=== PATIENT | male | born 1940 | race Caucasian/White ===

== ENCOUNTER 2020-06-28 23:58 | Inpatient (IN) ==
[2020-06-29] MEDS ORDERED: Iodixanol (CONTRAST) 320 MG/ML 100 ML SDV IV ONE (00:15)
[2020-06-29 01:13] LABS: ABS Basophils 0.1 10^3/ul (0-0.2); ABS Eosinophils 0.2 10^3/ul (0-0.6); ABS Lymphocytes 1.1 10^3/ul (1.0-4.8); ABS Monocytes 0.4 10^3/ul (0-0.8); ABS Neutrophils 4.8 10^3/ul (1.5-7.7); Eosinophil % 2.8 %; Hematocrit 37 % (42-52); Hemoglobin 12.1 g/dL (14.0-18.0); Lymphocyte % 16.6 %; Mean Corpuscular HGB Conc 33 g/dL (31-36); Mean Corpuscular Hemoglobin 30 pg (27-31); Mean Corpuscular Volume 92 fL (80-94); Mean Platelet Volume 7.3 fL (7.4-10.4); Platelet Count 119 10^3/uL (150-450); Red Blood Count 3.97 10^6 /uL (4.18-5.48); Red Cell Distribution Width 14 % (10-15); White Blood Count 6.6 10^3/uL (3.5-10.8)
[2020-06-29] MEDS ORDERED: Ondansetron 4 mg VIAL 2 MG/ML 2 ml VIAL IV ONE (01:21)
[2020-06-29 01:23] LABS: ALT 13 U/L (7-52); AST 14 U/L (13-39); Albumin/Globulin Ratio 1.7 (1-3); Alkaline Phosphatase 51 U/L (34-104); Anion Gap 5 mmol/L (2-11); BUN/Creatinine Ratio 19.5 (8-20); Blood Urea Nitrogen 24 mg/dL (6-24); CO2 Carbon Dioxide 25 mmol/L (22-32); Calcium 8.8 mg/dL (8.6-10.3); Chloride 108 mmol/L (101-111); EGFR African American 68.3 (>60); EGFR Non-African American 56.5 (>60); Globulin 2.3 g/dL (2-4); Glucose 162 mg/dL (70-100); Potassium 4.2 mmol/L (3.5-5.0); Sodium 138 mmol/L (135-145); Total Protein 6.3 g/dL (6.4-8.9)
[2020-06-29 01:34] LABS: INR 1.35 (0.82-1.09)
[2020-06-29 01:39] LABS: Troponin I 0.03 ng/mL (<0.03)
[2020-06-29] MEDS ORDERED: Albuterol HFA INHALER 8 gm MDI INH PRN (02:13)
[2020-06-29] MEDS: NS 0.9% 1000 ml BAG 1,000 ML IV SCH ×2 (04:37→17:06)
[2020-06-29] MEDS: Pantoprazole VIAL 40 MG VIAL IV SCH (05:18)
[2020-06-29 06:57] LABS: Anion Gap 8 mmol/L (2-11); BUN/Creatinine Ratio 19.5 (8-20); Blood Urea Nitrogen 22 mg/dL (6-24); CO2 Carbon Dioxide 21 mmol/L (22-32); Calcium 8.8 mg/dL (8.6-10.3); Chloride 108 mmol/L (101-111); Cholesterol 101 mg/dL; EGFR African American 75.4 (>60); EGFR Non-African American 62.3 (>60); Glucose 188 mg/dL (70-100); HDL Cholesterol 34.7 mg/dL; LDL Cholesterol 49 mg/dL; Potassium 4.4 mmol/L (3.5-5.0); Sodium 137 mmol/L (135-145); Triglycerides 86 mg/dL
[2020-06-29 07:05] LABS: Troponin I 0.03 ng/mL (<0.03)
[2020-06-29] MEDS ORDERED: Perflutren Lipid Microsphere 3 ML VIAL ONE (09:44)
[2020-06-29] MEDS ORDERED: Ondansetron 4 mg VIAL 2 MG/ML 2 ml VIAL IV PRN (11:54)
[2020-06-29] MEDS ORDERED: Labetalol IV 5 MG/ML 20 ml VIAL IV PUSH PRN (16:00)
[2020-06-30] MEDS: NS 0.9% 1000 ml BAG 1,000 ML IV SCH (06:04)
[2020-06-30] MEDS: Pantoprazole VIAL 40 MG VIAL IV SCH (09:31)
[2020-06-30 11:49] LABS: ABS Lymphocytes 1.1 10^3/ul (1.0-4.8); ABS Monocytes 0.8 10^3/ul (0-0.8); Hematocrit 33 % (42-52); Hemoglobin 10.8 g/dL (14.0-18.0); Lymphocyte % 12.2 %; Mean Corpuscular HGB Conc 33 g/dL (31-36); Mean Corpuscular Hemoglobin 30 pg (27-31); Mean Corpuscular Volume 93 fL (80-94); Platelet Count 109 10^3/uL (150-450); Red Blood Count 3.55 10^6 /uL (4.18-5.48); Red Cell Distribution Width 14 % (10-15); White Blood Count 8.9 10^3/uL (3.5-10.8)
[2020-06-30 12:05] LABS: Calcium 8.2 mg/dL (8.6-10.3); Magnesium 1.8 mg/dL (1.9-2.7); Potassium 4.2 mmol/L (3.5-5.0)
[2020-06-30 12:11] LABS: BUN/Creatinine Ratio 18.3 (8-20); EGFR African American 73.9 (>60)
[2020-06-30] MEDS ORDERED: Prothrombin Complex Conc. DOSE = Units Factor IX (nine) IV SLOW PU ONE ×2 (20:00)
[2020-06-30 20:46] LABS: ABS Lymphocytes 1.2 10^3/ul (1.0-4.8); ABS Monocytes 0.9 10^3/ul (0-0.8); ABS Neutrophils 6.4 10^3/ul (1.5-7.7); Eosinophil % 0.5 %; Hematocrit 34 % (42-52); Hemoglobin 11.2 g/dL (14.0-18.0); Lymphocyte % 14.1 %; Mean Corpuscular HGB Conc 33 g/dL (31-36); Mean Corpuscular Hemoglobin 30 pg (27-31); Mean Corpuscular Volume 92 fL (80-94); Mean Platelet Volume 7.4 fL (7.4-10.4); Platelet Count 116 10^3/uL (150-450); Red Blood Count 3.67 10^6 /uL (4.18-5.48); Red Cell Distribution Width 14 % (10-15); White Blood Count 8.6 10^3/uL (3.5-10.8)
[2020-06-30 20:50] LABS: INR 1.14 (0.82-1.09)
[2020-06-30 21:00] LABS: BUN/Creatinine Ratio 21.1 (8-20); Calcium 8.5 mg/dL (8.6-10.3); EGFR African American 74.6 (>60); EGFR Non-African American 61.7 (>60)
[2020-06-30] MEDS ORDERED: SODIUM CHLORIDE 3% IV ONE (21:00)
[2020-06-30] MEDS ORDERED: HYPERTONIC IV ONE (21:00)
[2020-07-01 01:17] LABS: BUN/Creatinine Ratio 20.6 (8-20); Blood Urea Nitrogen 22 mg/dL (6-24); CO2 Carbon Dioxide 22 mmol/L (22-32); Calcium 8.1 mg/dL (8.6-10.3); Chloride 108 mmol/L (101-111); EGFR African American 80.3 (>60); EGFR Non-African American 66.3 (>60); Glucose 142 mg/dL (70-100); Sodium 135 mmol/L (135-145)
[2020-07-01 01:20] LABS: Anion Gap 5 mmol/L (2-11)
[2020-07-01 04:59] LABS: ABS Basophils 0.1 10^3/ul (0-0.2); ABS Eosinophils 0.1 10^3/ul (0-0.6); ABS Lymphocytes 1.3 10^3/ul (1.0-4.8); ABS Monocytes 0.7 10^3/ul (0-0.8); ABS Neutrophils 5.9 10^3/ul (1.5-7.7); Eosinophil % 1.1 %; Hematocrit 34 % (42-52); Hemoglobin 11.2 g/dL (14.0-18.0); Lymphocyte % 15.7 %; Mean Corpuscular HGB Conc 33 g/dL (31-36); Mean Corpuscular Hemoglobin 30 pg (27-31); Mean Corpuscular Volume 92 fL (80-94); Mean Platelet Volume 7.4 fL (7.4-10.4); Platelet Count 106 10^3/uL (150-450); Red Blood Count 3.73 10^6 /uL (4.18-5.48); Red Cell Distribution Width 14 % (10-15)
[2020-07-01 05:15] LABS: BUN/Creatinine Ratio 20.6 (8-20); Calcium 8.4 mg/dL (8.6-10.3); EGFR African American 84.8 (>60); EGFR Non-African American 70.1 (>60); Magnesium 1.7 mg/dL (1.9-2.7)
[2020-07-01] MEDS ORDERED: Magnesium Sulfate 2 gm BAG 2 GM/50 ML BAG IVPB ONE (05:20)
[2020-07-01 09:44] LABS: Calcium 7.9 mg/dL (8.6-10.3); Potassium 3.9 mmol/L (3.5-5.0)
[2020-07-01 09:49] LABS: BUN/Creatinine Ratio 20.7 (8-20); EGFR African American 95.5 (>60)
[2020-07-01] MEDS: levETIRAcetam 500 MG IVPREMIX 500 MG/100 ML BAG IV SCH ×2 (10:56→20:41)
[2020-07-01] MEDS ORDERED: Dextrose 50% Syringe 50 ml 25 GM/50 ML SYRINGE IV PUSH PRN (11:52)
[2020-07-02 06:05] LABS: Calcium 8.1 mg/dL (8.6-10.3); Magnesium 2.1 mg/dL (1.9-2.7); Potassium 4.1 mmol/L (3.5-5.0)
[2020-07-02 06:10] LABS: BUN/Creatinine Ratio 22.3 (8-20); EGFR African American 93.2 (>60)
[2020-07-02] MEDS: levETIRAcetam 500 MG IVPREMIX 500 MG/100 ML BAG IV SCH ×2 (09:04→21:14)
[2020-07-03] MEDS ORDERED: Senna TAB 8.6 mg TAB PO PRN (02:42)
[2020-07-03] MEDS ORDERED: Polyethylene Glycol 3350 17 GM PACKET PO PRN (02:42)
[2020-07-03 04:54] LABS: ABS Eosinophils 0.2 10^3/ul (0-0.6); ABS Lymphocytes 0.8 10^3/ul (1.0-4.8); ABS Monocytes 0.5 10^3/ul (0-0.8); ABS Neutrophils 5.6 10^3/ul (1.5-7.7); Eosinophil % 2.5 %; Hematocrit 31 % (42-52); Hemoglobin 10.4 g/dL (14.0-18.0); Lymphocyte % 11.1 %; Mean Corpuscular HGB Conc 34 g/dL (31-36); Mean Corpuscular Hemoglobin 31 pg (27-31); Mean Corpuscular Volume 91 fL (80-94); Platelet Count 112 10^3/uL (150-450); Red Blood Count 3.37 10^6 /uL (4.18-5.48); Red Cell Distribution Width 14 % (10-15)
[2020-07-03 05:10] LABS: BUN/Creatinine Ratio 22.4 (8-20); Calcium 8.2 mg/dL (8.6-10.3); EGFR African American 104.7 (>60); EGFR Non-African American 86.5 (>60); Magnesium 1.9 mg/dL (1.9-2.7); Potassium 3.7 mmol/L (3.5-5.0)
[2020-07-03] MEDS ORDERED: Potassium Chlor 20 meq TAB.ER PO ONE (05:36)
[2020-07-03] MEDS ORDERED: Magnesium Sulfate IV 1GM/100ML 1 GM/100 ML BAG IV ONE (05:36)
[2020-07-03] MEDS: levETIRAcetam 500 MG IVPREMIX 500 MG/100 ML BAG IV SCH ×2 (09:03→20:18)
[2020-07-03] MEDS: Albuterol/Ipratropium NEB.SOL (2.5/0.5 MG) 3 ML NEB.SOLN INH PRN ×2 (10:33→15:48)
[2020-07-03] MEDS ORDERED: Furosemide 20 mg/2 ml IV VIAL IV SLOW PU ONE (23:23)
[2020-07-04 06:08] LABS: Calcium 8.5 mg/dL (8.6-10.3); Potassium 3.9 mmol/L (3.5-5.0)
[2020-07-04 06:14] LABS: BUN/Creatinine Ratio 21.3 (8-20); EGFR African American 99.3 (>60)
[2020-07-04 06:30] LABS: ABS Lymphocytes 1.1 10^3/ul (1.0-4.8); ABS Monocytes 0.6 10^3/ul (0-0.8); Eosinophil % 0.5 %; Hematocrit 36 % (42-52); Lymphocyte % 12.3 %; Mean Corpuscular HGB Conc 33 g/dL (31-36); Mean Corpuscular Hemoglobin 30 pg (27-31); Mean Corpuscular Volume 92 fL (80-94); Mean Platelet Volume 7.5 fL (7.4-10.4); Platelet Count 111 10^3/uL (150-450); Red Blood Count 3.95 10^6 /uL (4.18-5.48); Red Cell Distribution Width 14 % (10-15); White Blood Count 8.7 10^3/uL (3.5-10.8)
[2020-07-04] MEDS: Albuterol/Ipratropium NEB.SOL (2.5/0.5 MG) 3 ML NEB.SOLN INH PRN ×2 (08:13→20:54)
[2020-07-04] MEDS: levETIRAcetam 500 MG IVPREMIX 500 MG/100 ML BAG IV SCH ×2 (09:17→20:25)
[2020-07-04] MEDS: Enoxaparin 40 MG/0.4 ML SYR SUBCUT SCH (10:00)
[2020-07-05 07:48] VITALS: BP 136/54
[2020-07-05] MEDS: levETIRAcetam 500 MG IVPREMIX 500 MG/100 ML BAG IV SCH (08:31)
[2020-07-05] MEDS ORDERED: Furosemide 40 mg/4 ml IV VIAL IV ONE (08:36)
[2020-07-05] MEDS: Enoxaparin 40 MG/0.4 ML SYR SUBCUT SCH (08:37)
== END 2020-07-05 08:41 | DRG 64 ==
LOC: ED 23:58 → MEDTELE 06-29 02:05 → ICU 06-30 20:04 → MEDTELE 07-03 16:40
PROVIDERS: ADMIT Internal Medicine; ATTEND Hospitalist

== ENCOUNTER 2020-07-05 09:29 | Inpatient (IN) ==
[2020-07-05] MEDS ORDERED: Senna TAB 8.6 mg TAB PO PRN (13:04)
[2020-07-05] MEDS ORDERED: Dextrose 50% Syringe 50 ml 25 GM/50 ML SYRINGE IV PUSH PRN (13:13)
[2020-07-05] MEDS ORDERED: Albuterol/Ipratropium NEB.SOL (2.5/0.5 MG) 3 ML NEB.SOLN INH PRN (13:16)
[2020-07-06 07:42] LABS: ABS Basophils 0.1 10^3/ul (0-0.2); ABS Eosinophils 0.2 10^3/ul (0-0.6); ABS Monocytes 0.6 10^3/ul (0-0.8); ABS Neutrophils 6.3 10^3/ul (1.5-7.7); Eosinophil % 2.9 %; Hematocrit 35 % (42-52); Hemoglobin 11.5 g/dL (14.0-18.0); Lymphocyte % 12.3 %; Mean Corpuscular HGB Conc 33 g/dL (31-36); Mean Corpuscular Hemoglobin 30 pg (27-31); Mean Corpuscular Volume 92 fL (80-94); Mean Platelet Volume 7.3 fL (7.4-10.4); Platelet Count 139 10^3/uL (150-450); Red Blood Count 3.79 10^6 /uL (4.18-5.48); Red Cell Distribution Width 14 % (10-15); White Blood Count 8.2 10^3/uL (3.5-10.8)
[2020-07-06 08:03] LABS: Albumin 3.2 g/dL (3.2-5.2); Albumin/Globulin Ratio 1.4 (1-3); BUN/Creatinine Ratio 28.4 (8-20); Calcium 8.3 mg/dL (8.6-10.3); EGFR African American 92.1 (>60); EGFR Non-African American 76.1 (>60); Globulin 2.3 g/dL (2-4); Potassium 3.2 mmol/L (3.5-5.0); Total Protein 5.5 g/dL (6.4-8.9)
[2020-07-06] MEDS: Enoxaparin 40 MG/0.4 ML SYR SUBCUT SCH (09:04)
[2020-07-06] MEDS: SPIRIVA Respimat (tiotropium) 2.5 mcg/inh Inhaler INH SCH (09:06)
[2020-07-06] MEDS: Potassium Chlor 20 meq TAB.ER PO ONE ×2 (22:58→23:10)
[2020-07-06] MEDS ORDERED: Potassium Chloride LIQUID 20 MEQ/15 ML LIQUID PO ONE (23:17)
[2020-07-07] MEDS: Potassium Chlor 20 meq TAB.ER PO SCH ×2 (10:00→21:13)
[2020-07-07] MEDS: Enoxaparin 40 MG/0.4 ML SYR SUBCUT SCH (10:01)
[2020-07-07] MEDS: SPIRIVA Respimat (tiotropium) 2.5 mcg/inh Inhaler INH SCH (10:01)
[2020-07-07] MEDS: Albuterol HFA INHALER 8 gm MDI INH PRN (15:55)
[2020-07-08] MEDS: Potassium Chlor 20 meq TAB.ER PO SCH (09:11)
[2020-07-08] MEDS: Enoxaparin 40 MG/0.4 ML SYR SUBCUT SCH (09:12)
[2020-07-08] MEDS: SPIRIVA Respimat (tiotropium) 2.5 mcg/inh Inhaler INH SCH (09:12)
[2020-07-08] MEDS: Potassium Chloride LIQUID 20 MEQ/15 ML LIQUID PO SCH (20:51)
[2020-07-08] MEDS: Albuterol HFA INHALER 8 gm MDI INH PRN (21:30)
[2020-07-09] MEDS: SPIRIVA Respimat (tiotropium) 2.5 mcg/inh Inhaler INH SCH (08:33)
[2020-07-09] MEDS: Enoxaparin 40 MG/0.4 ML SYR SUBCUT SCH (09:42)
[2020-07-09] MEDS: Potassium Chloride LIQUID 20 MEQ/15 ML LIQUID PO SCH ×2 (09:43→20:45)
[2020-07-09] MEDS: Albuterol HFA INHALER 8 gm MDI INH PRN (20:42)
[2020-07-10 07:27] LABS: CO2 Carbon Dioxide 19 mmol/L (22-32); Calcium 7.8 mg/dL (8.6-10.3); Chloride 107 mmol/L (101-111); Sodium 134 mmol/L (135-145)
[2020-07-10 07:32] LABS: Anion Gap 8 mmol/L (2-11)
[2020-07-10 07:33] LABS: BUN/Creatinine Ratio 18.5 (8-20); Blood Urea Nitrogen 15 mg/dL (6-24); EGFR African American 110.4 (>60); EGFR Non-African American 91.2 (>60); Glucose 104 mg/dL (70-100)
[2020-07-10] MEDS: SPIRIVA Respimat (tiotropium) 2.5 mcg/inh Inhaler INH SCH (08:27)
[2020-07-10] MEDS: Enoxaparin 40 MG/0.4 ML SYR SUBCUT SCH (09:15)
[2020-07-10] MEDS: Potassium Chloride LIQUID 20 MEQ/15 ML LIQUID PO SCH (09:15)
[2020-07-10] MEDS: Aspirin EC 81 mg TAB.EC (enteric coated) PO SCH (09:15)
[2020-07-11] MEDS: SPIRIVA Respimat (tiotropium) 2.5 mcg/inh Inhaler INH SCH (08:25)
[2020-07-11] MEDS ORDERED: Potassium Chlor 20 meq TAB.ER PO SCH (09:00)
[2020-07-11] MEDS ORDERED: Potassium Chloride LIQUID 20 MEQ/15 ML LIQUID PO SCH (09:00)
[2020-07-11] MEDS: Enoxaparin 40 MG/0.4 ML SYR SUBCUT SCH (09:35)
[2020-07-11] MEDS: Aspirin EC 81 mg TAB.EC (enteric coated) PO SCH (09:35)
[2020-07-11] MEDS: Albuterol HFA INHALER 8 gm MDI INH PRN (21:09)
[2020-07-11] MEDS: Ciprofloxacin 0.3% OPTH.SOL BTL LEFT EYE SCH (21:23)
[2020-07-12] MEDS: Ciprofloxacin 0.3% OPTH.SOL BTL LEFT EYE SCH ×6 (02:17→22:03)
[2020-07-12] MEDS: Aspirin EC 81 mg TAB.EC (enteric coated) PO SCH (08:28)
[2020-07-12] MEDS: Potassium Chloride LIQUID 20 MEQ/15 ML LIQUID PO SCH (08:30)
[2020-07-12] MEDS: Enoxaparin 40 MG/0.4 ML SYR SUBCUT SCH (08:30)
[2020-07-12] MEDS: SPIRIVA Respimat (tiotropium) 2.5 mcg/inh Inhaler INH SCH (08:30)
[2020-07-12] MEDS ORDERED: Latanoprost 0.005% 2.5 ml BTL LEFT EYE SCH (18:00)
[2020-07-13] MEDS: Ciprofloxacin 0.3% OPTH.SOL BTL LEFT EYE SCH ×3 (02:50→08:35)
[2020-07-13 05:58] VITALS: BP 131/57
[2020-07-13] MEDS: Potassium Chloride LIQUID 20 MEQ/15 ML LIQUID PO SCH (08:34)
[2020-07-13] MEDS: Enoxaparin 40 MG/0.4 ML SYR SUBCUT SCH (08:35)
[2020-07-13] MEDS: SPIRIVA Respimat (tiotropium) 2.5 mcg/inh Inhaler INH SCH (08:35)
[2020-07-13] MEDS: Aspirin EC 81 mg TAB.EC (enteric coated) PO SCH (08:35)
== END 2020-07-13 15:30 | disposition home health service (06) | DRG 56 ==
LOC: PMRU 10:22
PROVIDERS: ADMIT Physical Medicine & Rehabilitation; ATTEND Physical Medicine & Rehabilitation

== ENCOUNTER 2023-11-07 06:22 | Inpatient (IN) ==
[2023-11-07] MEDS: Ondansetron 4 mg VIAL 2 MG/ML 2 ml VIAL IV ONE (07:20)
[2023-11-07] MEDS: Morphine 2 MG/ML SYRINGE IV ONE (07:20)
[2023-11-07 07:31] LABS: ABS Basophils 0.1 10^3/uL (0.0-0.1); ABS Eosinophils 0.2 10^3/uL (0.0-0.5); ABS Lymphocytes 0.8 10^3/uL (1.0-4.8); ABS Monocytes 0.3 10^3/uL (0.0-1.1); ABS Neutrophils 4.2 10^3/uL (1.5-7.6); Eosinophil % 2.8 %; Hematocrit 35.3 % (38-53); Hemoglobin 11.6 g/dL (13.2-16.3); Lymphocyte % 13.7 %; Mean Corpuscular Hemoglobin 28.7 pg (27-33); Mean Corpuscular Hgb Conc 32.8 g/dL (31-36); Mean Corpuscular Volume 87.5 fL (80-97); Mean Platelet Volume 7.2 fL (7.5-11.2); Platelet Count 108 10^3/uL (150-450); Red Blood Count 4.03 10^6/uL (4.06-5.63); Red Cell Distribution Width 14.8 % (12-17); White Blood Count 5.5 10^3/uL (3.6-10.2)
[2023-11-07 07:42] LABS: Activated Partial Thrombo Time 36.8 seconds (26.0-38.0); INR 2.19 (0.83-1.13)
[2023-11-07 08:27] LABS: Albumin 3.8 g/dL (3.2-5.2); Albumin/Globulin Ratio 1.9 (1-3); Calcium 8.9 mg/dL (8.6-10.3); Creatinine, Serum 1.3 mg/dL (0.67-1.17); Potassium 4.6 mmol/L (3.5-5.0); Total Bilirubin 0.6 mg/dL (0.2-1.0); Total Protein 5.8 g/dL (6.4-8.9); eGFR CKD-EPI 53.8 (>60)
[2023-11-07] MEDS ORDERED: Ondansetron ODT 4 mg TAB 4 MG TAB SL PRN (10:45)
[2023-11-07] MEDS ORDERED: Dextrose 50% Syringe 50 ml 25 GM/50 ML SYRINGE IV PUSH PRN (10:53)
[2023-11-07] MEDS: Phytonadione Oral Solution 5 MG/25 ML UDC PO ONE (11:53)
[2023-11-07] MEDS: Lactated Ringers 1000 ml BAG 1,000 ML IV ONE (14:20)
[2023-11-07 15:49] LABS: ABS Lymphocytes 0.5 10^3/uL (1.0-4.8); ABS Monocytes 0.3 10^3/uL (0.0-1.1); ABS Neutrophils 4.5 10^3/uL (1.5-7.6); Eosinophil % 0.2 %; Hematocrit 26.4 % (38-53); Hemoglobin 8.6 g/dL (13.2-16.3); Lymphocyte % 8.8 %; Mean Corpuscular Hemoglobin 28.6 pg (27-33); Mean Corpuscular Hgb Conc 32.5 g/dL (31-36); Mean Corpuscular Volume 87.9 fL (80-97); Mean Platelet Volume 7.4 fL (7.5-11.2); Platelet Count 89 10^3/uL (150-450); Red Blood Count 3.01 10^6/uL (4.06-5.63); Red Cell Distribution Width 14.7 % (12-17); White Blood Count 5.3 10^3/uL (3.6-10.2)
[2023-11-07 19:15] LABS: Vitamin D Total 25(OH) 18.8 ng/mL (20-50)
[2023-11-07 21:11] LABS: ABS Lymphocytes 0.7 10^3/uL (1.0-4.8); ABS Monocytes 0.5 10^3/uL (0.0-1.1); ABS Neutrophils 5.2 10^3/uL (1.5-7.6); Eosinophil % 0.2 %; Hematocrit 31.1 % (38-53); Hemoglobin 10.4 g/dL (13.2-16.3); Lymphocyte % 10.6 %; Mean Corpuscular Hemoglobin 29.1 pg (27-33); Mean Corpuscular Hgb Conc 33.4 g/dL (31-36); Mean Corpuscular Volume 87.1 fL (80-97); Mean Platelet Volume 7.3 fL (7.5-11.2); Platelet Count 109 10^3/uL (150-450); Red Blood Count 3.57 10^6/uL (4.06-5.63); Red Cell Distribution Width 14.7 % (12-17); White Blood Count 6.5 10^3/uL (3.6-10.2)
[2023-11-07] MEDS: Senna TAB 8.6 mg TAB PO SCH (21:25)
[2023-11-08 01:14] LABS: INR 1.93 (0.83-1.13)
[2023-11-08] MEDS: Phytonadione IV (Adult) 5 MG in NS 0.9% 50 ML 50 ML IV ONE (05:21)
[2023-11-08 06:10] LABS: ABS Lymphocytes 0.6 10^3/uL (1.0-4.8); ABS Monocytes 0.5 10^3/uL (0.0-1.1); ABS Neutrophils 5.1 10^3/uL (1.5-7.6); Eosinophil % 0.8 %; Hematocrit 31.6 % (38-53); Hemoglobin 10.3 g/dL (13.2-16.3); Lymphocyte % 9.7 %; Mean Corpuscular Hemoglobin 28.7 pg (27-33); Mean Corpuscular Hgb Conc 32.7 g/dL (31-36); Mean Corpuscular Volume 87.7 fL (80-97); Platelet Count 106 10^3/uL (150-450); Red Blood Count 3.61 10^6/uL (4.06-5.63); Red Cell Distribution Width 14.9 % (12-17); White Blood Count 6.3 10^3/uL (3.6-10.2)
[2023-11-08 06:16] LABS: INR 1.68 (0.83-1.13)
[2023-11-08 07:00] LABS: Calcium 8.7 mg/dL (8.6-10.3); Creatinine, Serum 1.29 mg/dL (0.67-1.17); Potassium 4.7 mmol/L (3.5-5.0); eGFR CKD-EPI 54.3 (>60)
[2023-11-08] MEDS: Phytonadione Oral Solution 5 MG/25 ML UDC PO ONE (10:54)
[2023-11-08] MEDS: Polyethylene Glycol 3350 17 GM PACKET PO SCH (10:57)
[2023-11-08] MEDS: CMC:DAPAGLIFLOZIN 10 MG TAB (NF) PO SCH (11:02)
[2023-11-08] MEDS: CMC:Solifenacin 5 mg TAB (NF) PO SCH (11:02)
[2023-11-08] MEDS: SPIRIVA Respimat (tiotropium) 2.5 mcg/inh Inhaler INH SCH (11:04)
[2023-11-08] MEDS: Lactated Ringers 1000 ml BAG 1,000 ML IV SCH (11:42)
[2023-11-08 13:40] LABS: INR 1.37 (0.83-1.13)
[2023-11-08] MEDS ORDERED: Lidocaine 1% w EPI 1:100,000 MDV 20 ML VIAL ONE (15:50)
[2023-11-08] MEDS ORDERED: Lidocaine 2% PF 5 ML VIAL ONE (15:57)
[2023-11-08] MEDS ORDERED: Rocuronium 50 mg VIAL 10 mg/ml 5 ml VIAL (50 mg) ONE (15:58)
[2023-11-08] MEDS ORDERED: fentaNYL 100 mcg/2 ml 50 MCG/ML VIAL ONE (15:58)
[2023-11-08] MEDS ORDERED: Propofol 10 MG/ML 20 ML BTL ONE (15:58)
[2023-11-08] MEDS ORDERED: ceFAZolin 2 GM in NS PREMIX 2 GM/100 ML BAG IVPB ONE (16:28)
[2023-11-08] MEDS ORDERED: Dexamethasone IV 4 MG/ML VIAL 1 ml VIAL ONE (17:13)
[2023-11-08] MEDS ORDERED: Ondansetron 4 mg VIAL 2 MG/ML 2 ml VIAL ONE (17:13)
[2023-11-08] MEDS ORDERED: Phenylephrine IV 10 MG/ML 1 ml VIAL ONE (17:15)
[2023-11-08] MEDS ORDERED: Acetaminophen IV 1 GM/100ML 1,000 MG/100 ML BAG IV ONE (17:22)
[2023-11-08] MEDS ORDERED: Desflurane 240 ML INH ONE (18:21)
[2023-11-08] MEDS ORDERED: Magnesium Hydroxide LIQ 30 ML UDC PO PRN (20:03)
[2023-11-08] MEDS ORDERED: Senna TAB 8.6 mg TAB PO PRN (20:03)
[2023-11-08] MEDS ORDERED: Polyethylene Glycol 3350 17 GM PACKET PO PRN (20:03)
[2023-11-08 20:30] LABS: Hematocrit 30.3 % (38-53)
[2023-11-08] MEDS: Magnesium Hydroxide LIQ 30 ML UDC PO SCH (21:00)
[2023-11-08 21:07] LABS: Albumin 3.4 g/dL (3.2-5.2); Albumin/Globulin Ratio 1.8 (1-3); Calcium 8.2 mg/dL (8.6-10.3); Creatinine, Serum 1.26 mg/dL (0.67-1.17); Globulin 1.9 g/dL (2-4); Potassium 4.5 mmol/L (3.5-5.0); Total Bilirubin 0.6 mg/dL (0.2-1.0); Total Protein 5.3 g/dL (6.4-8.9); eGFR CKD-EPI 55.9 (>60)
[2023-11-09] MEDS: ceFAZolin 1 GM ADVAN 1 GM in NS 0.9% 50 ML 50 ML IVPB SCH (00:26)
[2023-11-09 06:24] LABS: ABS Lymphocytes 0.4 10^3/uL (1.0-4.8); ABS Monocytes 0.4 10^3/uL (0.0-1.1); ABS Neutrophils 5.1 10^3/uL (1.5-7.6); ABS Nucleated RBC 0.01 10^3/ul; Albumin 3.3 g/dL (3.2-5.2); Albumin/Globulin Ratio 1.6 (1-3); Calcium 8.3 mg/dL (8.6-10.3); Creatinine, Serum 1.38 mg/dL (0.67-1.17); Eosinophil % 0.1 %; Globulin 2.1 g/dL (2-4); Hematocrit 30.7 % (38-53); Hemoglobin 9.5 g/dL (13.2-16.3); Mean Corpuscular Hemoglobin 28.8 pg (27-33); Mean Corpuscular Volume 92.9 fL (80-97); Mean Platelet Volume 7.9 fL (7.5-11.2); Nucleated Red Blood Cells % 0.2 %/100WBC (0.0-0.8); Platelet Count 99 10^3/uL (150-450); Potassium 4.9 mmol/L (3.5-5.0); Red Blood Count 3.31 10^6/uL (4.06-5.63); Red Cell Distribution Width 15.6 % (12-17); Total Bilirubin 0.4 mg/dL (0.2-1.0); Total Protein 5.4 g/dL (6.4-8.9); eGFR CKD-EPI 50.1 (>60)
[2023-11-09] MEDS ORDERED: Warfarin per PHARMACY **NOTE FOLLOW UP SCH (08:00)
[2023-11-09] MEDS: Enoxaparin 80 MG/0.8 ML SYR SUBCUT SCH (08:24)
[2023-11-09 08:37] LABS: Magnesium 2.1 mg/dL (1.9-2.7)
[2023-11-09 08:58] LABS: INR 1.07 (0.83-1.13)
[2023-11-09] MEDS: Furosemide 40 mg/4 ml IV VIAL IV ONE (09:30)
[2023-11-09] MEDS: Warfarin DAILY REMINDER **NOTE FOLLOW UP SCH (19:21)
[2023-11-10 06:10] LABS: ABS Lymphocytes 0.8 10^3/uL (1.0-4.8); ABS Monocytes 0.6 10^3/uL (0.0-1.1); ABS Nucleated RBC 0.01 10^3/ul; Eosinophil % 0.5 %; Hemoglobin 8.3 g/dL (13.2-16.3); Lymphocyte % 11.9 %; Mean Corpuscular Hemoglobin 29.2 pg (27-33); Mean Corpuscular Hgb Conc 33.2 g/dL (31-36); Mean Corpuscular Volume 87.9 fL (80-97); Mean Platelet Volume 7.8 fL (7.5-11.2); Nucleated Red Blood Cells % 0.1 %/100WBC (0.0-0.8); Platelet Count 105 10^3/uL (150-450); Red Blood Count 2.84 10^6/uL (4.06-5.63); Red Cell Distribution Width 14.5 % (12-17); White Blood Count 6.4 10^3/uL (3.6-10.2)
[2023-11-10 06:23] LABS: INR 1.15 (0.83-1.13)
[2023-11-10 06:33] LABS: Calcium 8.4 mg/dL (8.6-10.3); Creatinine, Serum 1.75 mg/dL (0.67-1.17); Potassium 4.5 mmol/L (3.5-5.0); eGFR CKD-EPI 37.7 (>60)
[2023-11-10] MEDS: Acetaminophen IV 1 GM/100ML 1,000 MG/100 ML BAG IV PRN (11:16)
[2023-11-10 12:17] LABS: Urine Appearance Clear; Urine Bilirubin Negative (Negative); Urine Blood Negative (Negative); Urine Color Light-Yellow; Urine Glucose 4+ (>=1000 mg/dL) (Negative); Urine Ketones Negative (Negative); Urine Nitrite Negative (Negative); Urine Protein Negative (Negative); Urine Urobilinogen Negative (Negative)
[2023-11-10] MEDS: HYDROmorphone 0.5 MG/0.5 ML SYRINGE IV SLOW PU PRN (14:44)
[2023-11-11 08:29] LABS: ABS Eosinophils 0.1 10^3/uL (0.0-0.5); ABS Lymphocytes 0.8 10^3/uL (1.0-4.8); ABS Monocytes 0.4 10^3/uL (0.0-1.1); ABS Neutrophils 3.4 10^3/uL (1.5-7.6); Eosinophil % 2.4 %; Hematocrit 22.2 % (38-53); Hemoglobin 7.3 g/dL (13.2-16.3); Lymphocyte % 17.1 %; Mean Corpuscular Hemoglobin 28.9 pg (27-33); Mean Corpuscular Volume 87.6 fL (80-97); Mean Platelet Volume 7.4 fL (7.5-11.2); Nucleated Red Blood Cells % 0.1 %/100WBC (0.0-0.8); Platelet Count 100 10^3/uL (150-450); Red Blood Count 2.53 10^6/uL (4.06-5.63); Red Cell Distribution Width 14.3 % (12-17); White Blood Count 4.8 10^3/uL (3.6-10.2)
[2023-11-11 08:30] LABS: INR 1.19 (0.83-1.13)
[2023-11-11 09:13] LABS: Calcium 8.3 mg/dL (8.6-10.3); Creatinine, Serum 1.42 mg/dL (0.67-1.17); Potassium 4.6 mmol/L (3.5-5.0); eGFR CKD-EPI 48.4 (>60)
[2023-11-11] MEDS: Pantoprazole VIAL 40 MG VIAL IV SCH (09:39)
[2023-11-11] MEDS: Lidocaine 1% MPF 5 ML VIAL INJ ONE (14:04)
[2023-11-11 17:45] LABS: Hematocrit 25.6 % (38-53); Hemoglobin 8.5 g/dL (13.2-16.3); Mean Corpuscular Hgb Conc 33.2 g/dL (31-36); Mean Corpuscular Volume 87.4 fL (80-97); Mean Platelet Volume 7.5 fL (7.5-11.2); Platelet Count 109 10^3/uL (150-450); Red Blood Count 2.93 10^6/uL (4.06-5.63); Red Cell Distribution Width 14.6 % (12-17); White Blood Count 6.2 10^3/uL (3.6-10.2)
[2023-11-12 08:10] LABS: ABS Eosinophils 0.2 10^3/uL (0.0-0.5); ABS Lymphocytes 0.7 10^3/uL (1.0-4.8); ABS Monocytes 0.4 10^3/uL (0.0-1.1); ABS Neutrophils 4.2 10^3/uL (1.5-7.6); Eosinophil % 3.7 %; Hemoglobin 9.1 g/dL (13.2-16.3); Lymphocyte % 12.8 %; Mean Corpuscular Hemoglobin 29.3 pg (27-33); Mean Corpuscular Hgb Conc 33.9 g/dL (31-36); Mean Corpuscular Volume 86.5 fL (80-97); Mean Platelet Volume 7.4 fL (7.5-11.2); Platelet Count 116 10^3/uL (150-450); Red Blood Count 3.12 10^6/uL (4.06-5.63); Red Cell Distribution Width 14.3 % (12-17); White Blood Count 5.6 10^3/uL (3.6-10.2)
[2023-11-12 08:20] LABS: INR 1.28 (0.83-1.13)
[2023-11-12 09:46] LABS: Calcium 8.5 mg/dL (8.6-10.3); Creatinine, Serum 1.1 mg/dL (0.67-1.17); Magnesium 2.3 mg/dL (1.9-2.7); Phosphorus 2.9 mg/dL (2.5-5.0); Potassium 4.7 mmol/L (3.5-5.0); eGFR CKD-EPI 65.8 (>60)
[2023-11-12] MEDS: Enoxaparin 80 MG/0.8 ML SYR SUBCUT SCH (11:35)
[2023-11-13 06:16] LABS: INR 1.42 (0.83-1.13)
[2023-11-13 06:19] LABS: ABS Eosinophils 0.1 10^3/uL (0.0-0.5); ABS Lymphocytes 0.8 10^3/uL (1.0-4.8); ABS Monocytes 0.4 10^3/uL (0.0-1.1); ABS Neutrophils 3.2 10^3/uL (1.5-7.6); ABS Nucleated RBC 0.02 10^3/ul; Eosinophil % 3.1 %; Hemoglobin 8.9 g/dL (13.2-16.3); Lymphocyte % 17.2 %; Mean Corpuscular Hemoglobin 28.8 pg (27-33); Mean Corpuscular Hgb Conc 32.9 g/dL (31-36); Mean Corpuscular Volume 87.5 fL (80-97); Mean Platelet Volume 7.3 fL (7.5-11.2); Nucleated Red Blood Cells % 0.4 %/100WBC (0.0-0.8); Platelet Count 120 10^3/uL (150-450); Red Blood Count 3.09 10^6/uL (4.06-5.63); Red Cell Distribution Width 14.4 % (12-17); White Blood Count 4.5 10^3/uL (3.6-10.2)
[2023-11-13 06:42] LABS: Calcium 8.1 mg/dL (8.6-10.3); Creatinine, Serum 1.03 mg/dL (0.67-1.17); Magnesium 2.2 mg/dL (1.9-2.7); Potassium 4.4 mmol/L (3.5-5.0); eGFR CKD-EPI 71.2 (>60)
[2023-11-14 10:23] LABS: Hematocrit 29.2 % (38-53); Hemoglobin 9.6 g/dL (13.2-16.3); Mean Corpuscular Hemoglobin 28.8 pg (27-33); Mean Corpuscular Hgb Conc 33.1 g/dL (31-36); Mean Corpuscular Volume 87.1 fL (80-97); Mean Platelet Volume 7.4 fL (7.5-11.2); Platelet Count 131 10^3/uL (150-450); Red Blood Count 3.35 10^6/uL (4.06-5.63); Red Cell Distribution Width 13.8 % (12-17); White Blood Count 4.6 10^3/uL (3.6-10.2)
[2023-11-14 10:26] LABS: INR 1.86 (0.83-1.13)
[2023-11-14] MEDS: NS 0.9% 500 ml BAG 500 ML IV SCH (15:00)
[2023-11-15 05:50] LABS: ABS Eosinophils 0.2 10^3/uL (0.0-0.5); ABS Lymphocytes 0.9 10^3/uL (1.0-4.8); ABS Monocytes 0.5 10^3/uL (0.0-1.1); ABS Neutrophils 3.8 10^3/uL (1.5-7.6); Eosinophil % 3.2 %; Hematocrit 25.2 % (38-53); Hemoglobin 8.5 g/dL (13.2-16.3); Lymphocyte % 16.7 %; Mean Corpuscular Hemoglobin 29.4 pg (27-33); Mean Corpuscular Hgb Conc 33.6 g/dL (31-36); Mean Corpuscular Volume 87.5 fL (80-97); Mean Platelet Volume 7.4 fL (7.5-11.2); Platelet Count 137 10^3/uL (150-450); Red Blood Count 2.88 10^6/uL (4.06-5.63); Red Cell Distribution Width 14.2 % (12-17); White Blood Count 5.4 10^3/uL (3.6-10.2)
[2023-11-15 05:56] LABS: INR 2.14 (0.83-1.13)
[2023-11-15 06:44] LABS: Creatinine, Serum 1.39 mg/dL (0.67-1.17); Magnesium 2.8 mg/dL (1.9-2.7); Phosphorus 2.8 mg/dL (2.5-5.0); Potassium 4.5 mmol/L (3.5-5.0); eGFR CKD-EPI 49.7 (>60)
[2023-11-16 06:26] LABS: INR 2.57 (0.83-1.13)
[2023-11-16 06:43] LABS: Mean Corpuscular Hemoglobin 29.2 pg (27-33); Mean Corpuscular Hgb Conc 33.3 g/dL (31-36); Mean Corpuscular Volume 87.6 fL (80-97); Mean Platelet Volume 7.3 fL (7.5-11.2); Platelet Count 152 10^3/uL (150-450); Red Blood Count 2.74 10^6/uL (4.06-5.63); Red Cell Distribution Width 14.9 % (12-17)
[2023-11-16 06:57] LABS: Calcium 7.7 mg/dL (8.6-10.3); Creatinine, Serum 1.22 mg/dL (0.67-1.17); Potassium 4.5 mmol/L (3.5-5.0); eGFR CKD-EPI 58.1 (>60)
[2023-11-17 03:13] VITALS: BP 115/54
== END 2023-11-17 12:15 | DRG 480 ==
LOC: ED 06:22 → SUATTDRO 09:55 → EDHOLD 09:55 → SSU 14:08
PROVIDERS: ADMIT Internal Medicine; ATTEND Internal Medicine

== ENCOUNTER 2024-03-10 12:12 | Observation (INO) ==
[2024-03-10 15:31] LABS: Hemoglobin 12.8 g/dL (13.2-16.3); Mean Corpuscular Hemoglobin 29.1 pg (27-33); Mean Corpuscular Hgb Conc 32.9 g/dL (31-36); Mean Corpuscular Volume 88.4 fL (80-97); Mean Platelet Volume 7.1 fL (7.5-11.2); Platelet Count 126 10^3/uL (150-450); White Blood Count 4.3 10^3/uL (3.6-10.2)
[2024-03-10 16:05] LABS: Calcium 9.2 mg/dL (8.6-10.3); Creatinine, Serum 1.39 mg/dL (0.67-1.17); Potassium 3.8 mmol/L (3.5-5.0); Total Bilirubin 0.8 mg/dL (0.2-1.0); eGFR CKD-EPI 49.7 (>60)
[2024-03-10 16:30] LABS: INR 12.53 (0.83-1.13)
[2024-03-10] MEDS: Phytonadione SUBCUT/IM Adult 10 MG/ML AMP (IM or SQ not preferred route) IM ONE (17:22)
[2024-03-10] MEDS: Phytonadione SUBCUT/IM Adult 10 MG/ML AMP (IM or SQ not preferred route) SUBCUT ONE (17:42)
[2024-03-10] MEDS ORDERED: Albuterol HFA INHALER 8 gm MDI INH PRN (19:10)
[2024-03-11 06:52] LABS: ABS Eosinophils 0.1 10^3/uL (0.0-0.5); ABS Lymphocytes 0.9 10^3/uL (1.0-4.8); ABS Monocytes 0.4 10^3/uL (0.0-1.1); Eosinophil % 2.6 %; Hematocrit 36.8 % (38-53); Hemoglobin 12.1 g/dL (13.2-16.3); Lymphocyte % 19.8 %; Mean Corpuscular Hemoglobin 28.7 pg (27-33); Mean Platelet Volume 7.6 fL (7.5-11.2); Platelet Count 115 10^3/uL (150-450); Red Blood Count 4.23 10^6/uL (4.06-5.63); Red Cell Distribution Width 15.1 % (12-17); White Blood Count 4.4 10^3/uL (3.6-10.2)
[2024-03-11 07:15] LABS: INR 8.23 (0.83-1.13)
[2024-03-11 07:47] LABS: Calcium 8.7 mg/dL (8.6-10.3); Creatinine, Serum 1.35 mg/dL (0.67-1.17); Magnesium 1.9 mg/dL (1.9-2.7); eGFR CKD-EPI 51.5 (>60)
[2024-03-11] MEDS: CMCS: Mirabegron 25 mg ER TAB (NF) PO SCH (09:23)
[2024-03-11] MEDS: SPIRIVA Respimat (tiotropium) 2.5 mcg/inh Inhaler INH SCH (09:39)
[2024-03-11 13:40] VITALS: BP 89/56
== END 2024-03-11 16:00 | disposition home health service (06) ==
LOC: EDHOLD 12:12 → ED 12:12 → SUATTDRO 17:45 → MEDTELE 21:03
PROVIDERS: ADMIT Internal Medicine; ATTEND Internal Medicine